=== PATIENT | male | born 1995 | race Caucasian/White ===

== ENCOUNTER 2017-05-08 13:59 | Emergency (ER) | payer MEDICAID ==
[2017-05-08] MEDS ORDERED: NS 0.9% 1000 ML* 1,000 ML IV ONE (14:07)
[2017-05-08 14:30] LABS: ABS Basophils 0 10^3/ul (0-0.2); ABS Eosinophils 0.5 10^3/ul (0-0.6); ABS Lymphocytes 1.5 10^3/ul (1.0-4.8); ABS Monocytes 0.5 10^3/ul (0-0.8); ABS Neutrophils 2.3 10^3/ul (1.5-7.7); ABS Nucleated RBC 0 10^3/ul; Eosinophil % 10.6 % (0-6); Hematocrit 45 % (42-52); Hemoglobin 15.7 g/dl (14.0-18.0); Lymphocyte % 31.5 % (25-47); Mean Corpuscular HGB Conc 35 g/dl (31-36); Mean Corpuscular Hemoglobin 31 pg (27-31); Mean Corpuscular Volume 89 fL (80-94); Mean Platelet Volume 8 um3 (7.4-10.4); Nucleated Red Blood Cells % 0.1; Platelet Count 176 10^3/ul (150-450); Red Blood Count 5.09 10^6/ul (4.0-5.4); Red Cell Distribution Width 13 % (10.5-15); White Blood Count 4.8 10^3/ul (3.5-10.8)
[2017-05-08 14:45] LABS: INR 0.94 (0.77-1.02)
--- NOTE | 2017-05-08 15:03 | RAD ---
Indication: Headaches, seizure. CT of the brain was performed without IV contrast. Ventricular structures are midline. No midline shift is noted. The extraction spaces are unremarkable. There is no evidence of intracranial mass or hemorrhage. No other high or low density lesions identified. Mastoid air cells and paranasal sinuses are otherwise unremarkable. IMPRESSION: No intracranial mass or hemorrhage is noted.
[2017-05-08 16:52] LABS: Urine Appearance Clear; Urine Blood Negative (Negative); Urine Color Yellow; Urine Ketones Negative (Negative); Urine Protein Negative (Negative); Urine Urobilinogen Negative (Negative)
[2017-05-08] MEDS ORDERED: Valproic Acid IV(*) 500 MG in NS 0.9% 100 ML* 100 ML IVPB ONE (18:01)
[2017-05-08] MEDS ORDERED: Valproic Acid CAP(*) 250 MG PO ONE (18:19)
--- NOTE | 2017-05-08 18:49 | ED ---
Garcia Floyd Jennifer, scribed for Adrien Owens MD on 05/08/17 at 1410 . Neurological HPI - HPI Summary HPI Summary: The patient is a 21 year old male who was brought to the ED by ambulance after a witnessed seizure. Pt does not remember the event. He last remembers eating lunch at 12:00. He came to in the ambulance and freaked out due to the confusion and amnesia. Pt reports he just wanted to get out of the ambulance. Pt complains of abdominal pain and a frontal headache. He reports he had body aches in the ambulance but denies any in the ED. Pt denies incontinence. He knows where he is now and understands what happened to him. The pt comes from [facility] for heroin and crack use. Pt reports he last used drugs six weeks ago. - History of Current Complaint Stated Complaint: SEIZURE Time Seen by Provider: 05/08/17 14:01 Hx Obtained From: Patient Onset/Duration: Sudden Onset, Started hours ago, Resolved Timing: Constant Onset Severity: Severe Current Severity: Mild Seizure Severity: Severe Headache Location: Frontal Character: Other: - abdominal pain, headache, amnesia, body aches and confusion in the ambulance Syncope Context: Witnessed, Loss of Consciousness: Yes Frequency: Episodes x___ - 1 Aggravating: Nothing Alleviating: Nothing Associated Signs and Symptoms: Positive: Headache, Memory Loss, Confusion, Pain - Abdominal pain, body aches. Negative: Incontinent Bladder/Bowel - Allergy/Home Medications Allergies/Adverse Reactions: Allergies Allergy/AdvReac Type Severity Reaction Status Date / Time No Known Allergies Allergy Verified 05/08/17 14:26 PMH/Surg Hx/FS Hx/Imm Hx Cardiovascular History: Reports: Hx Hypertension Sensory History: Denies: Hx Legally Blind EENT History: Denies: Hx Deafness Neurological History: Denies: Hx Seizures - Family History Known Family History: Negative: Hypertension - Social History Substance Use Type: Reports: Heroin, Other - Crack Smoking Status (MU): Smoker, Current Status Unknown Review of Systems Positive: Abdominal Pain Positive: Myalgia Neurological: Other - Seizure, amnesia, confusion All Other Systems Reviewed And Are Negative: Yes Physical Exam - Summary Physical Exam Summary: General: well-appearing, no pain distress Skin: warm, color reflects adequate perfusion, dry Head: normal Eyes: EOMI, OLGA LIDIA ENT: normal Neck: supple, nontender Respiratory: CTA, breath sounds present Cardiovascular: RRR Abdomen: soft, nontender Bowel: present Musculoskeletal: normal, strength/ROM intact Neurological: normal, sensory/motor intact, A&O x3 Psychological: underlying anxiety Triage Information Reviewed: Yes Vital Signs On Initial Exam: Initial Vitals Temp Pulse Resp BP Pulse Ox 98.9 F 106 16 147/87 99 05/08/17 14:04 05/08/17 14:04 05/08/17 14:04 05/08/17 14:04 05/08/17 14:04 Vital Signs Reviewed: Yes Diagnostics - Vital Signs Vital Signs Temp Pulse Resp BP Pulse Ox 05/08/17 17:00 13 139/68 05/08/17 16:00 79 18 106/49 97 05/08/17 15:00 74 12 95/83 98 05/08/17 14:47 91 19 100 05/08/17 14:46 125/78 05/08/17 14:04 98.9 F 106 16 147/87 99 - Laboratory Lab Results: Lab Results 05/08/17 05/08/17 05/08/17 Range/Units 14:17 14:17 14:17 WBC 4.8 (3.5-10.8) 10^3/ul RBC 5.09 (4.0-5.4) 10^6/ul Hgb 15.7 (14.0-18.0) g/dl Hct 45 (42-52) % MCV 89 (80-94) fL MCH 31 (27-31) pg MCHC 35 (31-36) g/dl RDW 13 (10.5-15) % Plt Count 176 (150-450) 10^3/ul MPV 8 (7.4-10.4) um3 Neut % (Auto) 46.8 (38-83) % Lymph % (Auto) 31.5 (25-47) % [place] % (Auto) 10.1 H (0-7) % Eos % (Auto) 10.6 H (0-6) % Baso % (Auto) 1.0 (0-2) % Absolute Neuts (auto) 2.3 (1.5-7.7) 10^3/ul Absolute Lymphs (auto) 1.5 (1.0-4.8) 10^3/ul Absolute Monos (auto) 0.5 (0-0.8) 10^3/ul Absolute Eos (auto) 0.5 (0-0.6) 10^3/ul Absolute Basos (auto) 0 (0-0.2) 10^3/ul Absolute Nucleated RBC 0 10^3/ul Nucleated RBC % 0.1 INR (Anticoag Therapy) 0.94 (0.77-1.02) APTT 35.8 (26.0-36.3) seconds Sodium 136 (133-145) mmol/L Potassium 4.7 (3.5-5.0) mmol/L Chloride 101 (101-111) mmol/L Carbon Dioxide 31 (22-32) mmol/L Anion Gap 4 (2-11) mmol/L BUN 12 (6-24) mg/dL Creatinine 0.82 (0.67-1.17) mg/dL Est GFR ( Amer) 155.7 (>60) Est GFR (Non-Af Amer) 121.0 (>60) BUN/Creatinine Ratio 14.6 (8-20) Glucose 105 H (70-100) mg/dL Lactic Acid (0.5-2.0) mmol/L Calcium 9.4 (8.6-10.3) mg/dL Magnesium 2.0 (1.9-2.7) mg/dL Total Bilirubin 0.50 (0.2-1.0) mg/dL AST 18 (13-39) U/L ALT 12 (7-52) U/L Alkaline Phosphatase 55 (34-104) U/L Total Creatine Kinase 86 (10-223) U/L C-Reactive Protein 4.50 (< 5.00) mg/L Total Protein 6.4 (6.4-8.9) g/dL Albumin 4.1 (3.2-5.2) g/dL Globulin 2.3 (2-4) g/dL Albumin/Globulin Ratio 1.8 (1-3) Lipase 10 L (11.0-82.0) U/L TSH 6.71 H (0.34-5.60) mcIU/mL Thyroxine (T4) Pending Total T3 Pending Urine Color Urine Appearance Urine pH (5-9) Ur Specific [place] (1.010-1.030) Urine Protein (Negative) Urine Ketones (Negative) Urine Blood (Negative) Urine Nitrate (Negative) Urine Bilirubin (Negative) Urine Urobilinogen (Negative) Ur Leukocyte Esterase (Negative) Urine Glucose (Negative) Urine Opiates Screen (None Detect) Ur Barbiturates Screen (None Detect) Ur Phencyclidine Scrn (None Detect) Ur Amphetamines Screen (None Detect) U Benzodiazepines Scrn (None Detect) Urine Cocaine Screen (None Detect) U Cannabinoids Screen (None Detect) 05/08/17 05/08/17 05/08/17 Range/Units 14:17 16:34 16:34 WBC (3.5-10.8) 10^3/ul RBC (4.0-5.4) 10^6/ul Hgb (14.0-18.0) g/dl Hct (42-52) % MCV (80-94) fL MCH (27-31) pg MCHC (31-36) g/dl RDW (10.5-15) % Plt Count (150-450) 10^3/ul MPV (7.4-10.4) um3 Neut % (Auto) (38-83) % Lymph % (Auto) (25-47) % [place] % (Auto) (0-7) % Eos % (Auto) (0-6) % Baso % (Auto) (0-2) % Absolute Neuts (auto) (1.5-7.7) 10^3/ul Absolute Lymphs (auto) (1.0-4.8) 10^3/ul Absolute Monos (auto) (0-0.8) 10^3/ul Absolute Eos (auto) (0-0.6) 10^3/ul Absolute Basos (auto) (0-0.2) 10^3/ul Absolute Nucleated RBC 10^3/ul Nucleated RBC % INR (Anticoag Therapy) (0.77-1.02) APTT (26.0-36.3) seconds Sodium (133-145) mmol/L Potassium (3.5-5.0) mmol/L Chloride (101-111) mmol/L Carbon Dioxide (22-32) mmol/L Anion Gap (2-11) mmol/L BUN (6-24) mg/dL Creatinine (0.67-1.17) mg/dL Est GFR ( Amer) (>60) Est GFR (Non-Af Amer) (>60) BUN/Creatinine Ratio (8-20) Glucose (70-100) mg/dL Lactic Acid 2.1 H* (0.5-2.0) mmol/L Calcium (8.6-10.3) mg/dL Magnesium (1.9-2.7) mg/dL Total Bilirubin (0.2-1.0) mg/dL AST (13-39) U/L ALT (7-52) U/L Alkaline Phosphatase (34-104) U/L Total Creatine Kinase (10-223) U/L C-Reactive Protein (< 5.00) mg/L Total Protein (6.4-8.9) g/dL Albumin (3.2-5.2) g/dL Globulin (2-4) g/dL Albumin/Globulin Ratio (1-3) Lipase (11.0-82.0) U/L TSH (0.34-5.60) mcIU/mL Thyroxine (T4) Total T3 Urine Color Yellow Urine Appearance Clear Urine pH 8.0 (5-9) Ur Specific [place] 1.010 (1.010-1.030) Urine Protein Negative (Negative) Urine Ketones Negative (Negative) Urine Blood Negative (Negative) Urine Nitrate Negative (Negative) Urine Bilirubin Negative (Negative) Urine Urobilinogen Negative (Negative) Ur Leukocyte Esterase Negative (Negative) Urine Glucose Negative (Negative) Urine Opiates Screen None detected (None Detect) Ur Barbiturates Screen None detected (None Detect) Ur Phencyclidine Scrn None detected (None Detect) Ur Amphetamines Screen None detected (None Detect) U Benzodiazepines Scrn None detected (None Detect) Urine Cocaine Screen None detected (None Detect) U Cannabinoids Screen None detected (None Detect) Result Diagrams: 05/08/17 14:17 05/08/17 14:17 Lab Statement: Any lab studies that have been ordered have been reviewed, and results considered in the medical decision making process. - CT Brain CT CT Interpretation: No Acute Changes - No intracranial mass or hemorrhage is noted. Dr. Owens has reviewed this report. CT Interpretation Completed By: Radiologist Course/Dx - Course Course Of Treatment: SEEN IN ED BY DR PARK, NEUROLOGY. THE PLAN IS VALPROIC ACID 250MG PO BID X 7 DAYS, THEN 500MG PO BID AND F/U WITH DR PARK. CRITICAL CARE TIME LESS THAN 30 MINUTES. Assessment/Plan: BP noted and advised to follow-up with PCP. - Diagnoses Provider Diagnoses: Elevated BP without diagnosis of hypertension, Epilepsy, Hypothyroid Discharge - Discharge Plan Condition: Stable Disposition: HOME Prescriptions: Valproic Acid CAP(*) [Depakene CAP(*)] 500 mg PO BID #120 cap Patient Education Materials: Epilepsy (ED), Subclinical Hypothyroidism (ED) Referrals: [facility] [Provider Group] Bere Park MD [Medical Doctor] - Parisa Pleitez MD [Primary Care Provider] - Additional Instructions: FOLLOW UP WITH NEUROLOGY, DR PARK. RETURN TO THE EMERGENCY DEPARTMENT FOR ANY WORSENING OF YOUR CONDITION; RECURRENT SEIZURES, YOU FEEL ILL OR QUESTIONS OR CONCERNS. YOUR BLOOD PRESSURE WAS ELEVATED TODAY; FOLLOW UP WITH YOUR PRIMARY CARE DOCTOR WITHIN THE NEXT 1 WEEK. The documentation as recorded by the Garcia lao Jennifer accurately reflects the service I personally performed and the decisions made by me, Adrien Owens MD.
[2017-05-08 19:33] VITALS: BP 130/78
--- NOTE | 2017-05-08 21:37 | CONS ---
NEUROLOGY CONSULTATION: DATE OF CONSULT: 05/08/17 LOCATION: The patient is seen in the emergency department. REQUESTING PHYSICIAN: Adrien Owens MD REASON FOR CONSULT: New-onset seizure. HISTORY OF PRESENT ILLNESS: Robert Jin is a 21-year-old man with a history of depression and polysubstance abuse, currently in remission, who presented to the emergency department from [facility] this afternoon after he experienced generalized seizure. The last thing he remembers is being out back with some friends and the next thing is being put into the ambulance. He reports that he had a headache and felt generally unwell when he first came to, but denies any oral trauma or loss of bladder control. He currently feels well and essentially back to his baseline. He reports that he has been at [facility] for about 40 days and has been clean during that time. He has a history of IV crack cocaine and heroin abuse and is currently on Suboxone. He has attempted to get clean several times in the past and has always relapsed, but says he is ready to get clean this time. He does say that he had one other seizure a year or two ago, but this was when he was high on LSD and ecstasy. He is adopted, but knows his biological parents and says his father, who is now 36, has seizures. He is also a drug user and Robert is not sure when his seizures began or if they are related to his drug use. Robert also has a history of depression and has been started on Wellbutrin within the last 4 weeks. He has also recently been started on Seroquel. He reports that he feels this combination is working for his depression. In the past, he has been tried on other antidepressants including, Zoloft, Lexapro and Effexor. He endorses occasional twitching in his arms and legs and says "this always happens when I get clean". Sometimes this twitching causes him to fall. This can happen any time of the day. He has a past history of head injury when he overdosed, passed out and hit his head on a table. He was hospitalized for 2 days and says "I and they brought me back" but he is unsure if he required CPR, ventilation, or just Narcan to revive him. PAST MEDICAL HISTORY: 1. Polysubstance abuse. Currently clean. 2. History of head injury when he fell as a result of an overdose. He reports that he was in the hospital for 2 days at that time. He also reports a history of short term memory loss related to this injury. 3. Depression. PAST SURGICAL HISTORY: None. HOME MEDICATIONS: 1. Suboxone 12 mg. 2. Wellbutrin 150 mg daily. 3. Seroquel 100 mg daily. ALLERGIES: No known drug allergies. FAMILY HISTORY: Father with history of seizures. SOCIAL HISTORY: As mentioned, he is adopted. He currently lives at [facility] and before that was living at his ex-girlfriend's father's house. He smokes cigarettes. He reports he drinks an average of 8 beers every 3 months, but will tend to drink 4 in a sitting when he does drink. Drug use as noted in the HPI. REVIEW OF SYSTEMS: He otherwise denies any chest pains, palpitations, breathing difficulties, skin rashes, joint swelling or pain. He has had no recent abdominal issues. No recent systemic illnesses. PHYSICAL EXAMINATION: Vital Signs: Temperature 98.9, blood pressure was 147/ 87 on his admission with a heart rate of 106 and most recently measured at 95/ 83 with a heart rate of 73. Oxygen saturation is 98% on room air. On general examination, he is a well-appearing, in no acute distress. I did note occasional myoclonic movements in his shoulders as well as his hands. At one point, he seemed to have an eye rolling behavior, but indicated that he was "fine." His heart is in a regular rate and rhythm with no obvious murmurs. His lungs are clear to auscultation bilaterally. He has a well-healed scar on his forehead. On neurologic examination, he is fully awake, alert and oriented. His speech is clear without dysarthria or aphasia. On cranial nerve examination, his pupils are equal, round and reactive from 4 to 2 mm bilaterally. Versions are full without nystagmus. [place] are full to confrontation. Facial sensation and musculature is full and symmetric. Hearing is intact to finger rub. The palate elevates symmetrically and the tongue is midline. On motor examination, he has full strength in the upper and lower extremities with no pronator drift. Sensation is intact to light touch in the upper and lower extremities. Reflexes are 2+ throughout with downgoing toes. [id number] and heel-to- chin are intact without any ataxia. I did not ambulate him. DIAGNOSTIC STUDIES/LAB DATA: His CMP is overall unremarkable aside from a slightly elevated TSH of 6.71 and a lactate of 2.1 on his admission. His glucose was 105. His CBC was overall unremarkable and his urinalysis was negative. His urine tox screen is pending. Brain CT was personally reviewed and appeared to be a normal study. IMPRESSION AND PLAN: Robert Jin is a 21-year-old man with a history of polysubstance abuse who comes in with a new onset convulsion. He does have a history of one prior convulsion in the past, but this sounds to be provoked in the setting of Ecstasy and LSD use. The current seizure may also be provoked in the setting of Wellbutrin use, which I would recommend he discontinue. However, there is also a family history of epilepsy and I noticed some myoclonus on his exam today. He is the right age for a potentially developing generalized epilepsy syndrome such as juvenile myoclonic epilepsy and so we will try to get an EEG on him in the emergency department here as an EEG which shows generalized discharges would suggest the need for anti-seizure medication. Reasonable choices for him considering his history of depression could include either lamotrigine or Depakote, but these decisions can be made pending the EEG. If the EEG is normal, then I would not recommend any treatment at this time and he should discontinue Wellbutrin. He will need to exercise seizure precautions including no driving, no climbing height greater than 5 feet, being near open flames un supervised or swimming unsupervised, etc. Thank you for this consultation. I discussed the plan with Dr. Owens and we will follow up with him on the results of the EEG. [id number]/[facility] #: [id number] [place]
== END 2017-05-08 19:36 | disposition home or self-care (01) ==
LOC: ED 13:59
DX: R03.0 Elevated blood-pressure reading, without diagnosis of hypertension (principal); G40.909 Epilepsy, unspecified, not intractable, without status epilepticus; E03.9 Hypothyroidism, unspecified; R51 Headache; R41.0 Disorientation, unspecified
CPT/HCPCS: 36415; 70450; 80053; 80307; 81003; 82550; 83605; 83690; 83735; 84436; 84443; 84479; 85025; 85610; 85730; 86140; 95819; 96360; 99284; A9270-GY